=== PATIENT | female | born 1990 | race American Indian/Alaskan Native ===

== ENCOUNTER 2020-05-03 09:57 | Emergency (ER) | payer MEDICAID ==
[2020-05-03] MEDS ORDERED: ZIPRASIDONE MESYLATE 20 MG VIAL IM ONE ×3 (10:10→18:11)
--- NOTE | 2020-05-03 10:16 | Emergency Department Report ---
ED Psych HPI - General Stated Complaint: PSYCH Time Seen by Provider: 05/03/20 10:10 Source: EMS - History of Present Illness Initial Comments: Patient is 29 years old female with no significant past medical history. Patient brought to the emergency room via EMS from home after patient called and stating that patient has been very agitated and disrupting. He stated she started feeling of all the pains in the house. EMS stated that stated that patient had a baby in November 2019 and for the last few days kept neglecting the baby not feeding the baby for cleaning and he has to take the baby to his parents house. Upon arrival to the emergency room patient is very agitated and took of all her clothes and became completely naked and started throwing her clothes to ER staff. Patient started dancing and laughing inappropriately. Patient is chemically restrained with Geodon 20 mg IM immediately. EMS reported that patient has been stated that she had one episode like this 1 year ago before their marriage. MD Complaint: altered mental status Associated Psychiatric Symptoms: racing thoughts, delusions History of same: Yes Quality: constant Treatments Prior to Arrival: placed on mental he - Related Data Allergies Allergy/AdvReac Type Severity Reaction Status Date / Time No Known Allergies Allergy Unverified 05/03/20 18:08 ED Review of Systems ROS: Stated complaint: PSYCH Other details as noted in HPI Comment: Unobtainable due to pts medical conditions ED Physical Exam - General General appearance: other (agitated.) - Head Head exam: Present: atraumatic, normocephalic, normal inspection - ENT ENT exam: Present: normal exam - Neck Neck exam: Present: normal inspection. Absent: tenderness - Respiratory Respiratory exam: Present: normal lung sounds bilaterally - Cardiovascular Cardiovascular Exam: Present: regular rate, normal rhythm, normal heart sounds - GI/Abdominal GI/Abdominal exam: Present: soft, normal bowel sounds. Absent: distended, tenderness, guarding, rebound, rigid, organomegaly, mass, bruit, pulsatile mass, hernia - Extremities Exam Extremities exam: Present: normal inspection, full ROM, normal capillary refill. Absent: pedal edema, calf tenderness - Back Exam Back exam: Absent: CVA tenderness (R), CVA tenderness (L) - Neurological Exam Neurological exam: Present: alert, altered, CN II-XII intact. Absent: motor sensory deficit - Psychiatric Psychiatric exam: Present: agitated, manic - Skin Skin exam: Present: warm, intact, normal color ED Course Vital Signs 05/03/20 05/03/20 05/03/20 10:57 11:52 15:46 Temperature 98.4 F Pulse Rate 87 85 Respiratory 18 18 18 Rate Blood Pressure 118/73 Blood Pressure 135/102 [Left] O2 Sat by Pulse 99 100 99 Oximetry 05/03/20 05/04/20 20:39 02:51 Temperature 97.7 F 98.0 F Pulse Rate 86 77 Respiratory 18 18 Rate Blood Pressure Blood Pressure 157/112 152/90 [Left] O2 Sat by Pulse 100 99 Oximetry ED Medical Decision Making - Lab Data Result diagrams: 05/03/20 10:41 05/03/20 10:41 Critical care attestation.: If time is entered above; I have spent that time in minutes in the direct care of this critically ill patient, excluding procedure time. ED Disposition Clinical Impression: Acute psychosis Disposition: DC/TX-70 ANOTHER TYPE HLTHCARE Is pt being admited?: No Condition: Stable Referrals: PRIMARY CARE [Primary Care Provider] - 3-5 Days
[2020-05-03 11:22] LABS: Basophils # (Auto) 0.1 K/mm3 (0.0-0.1); Basophils % (Auto) 1.1 % (0.0-1.8); Eosinophils % (Auto) 0.3 % (0.0-4.3); Hematocrit 48.1 % (30.3-42.9); Hemoglobin 16.4 gm/dl (10.1-14.3); Lymphocytes # (Auto) 2.4 K/mm3 (1.2-5.4); Lymphocytes % (Auto) 21.6 % (13.4-35.0); Mean Corpuscular HGB Conc 34 % (30-34); Mean Corpuscular Volume 92 fl (79-97); Monocytes # (Auto) 0.9 K/mm3 (0.0-0.8); Monocytes % (Auto) 8.6 % (0.0-7.3); Red Blood Count 5.23 M/mm3 (3.65-5.03); Red Cell Distribution Width 12.3 % (13.2-15.2)
[2020-05-03 11:35] LABS: Platelet Count 414 K/mm3 (140-440)
[2020-05-03 11:39] LABS: BUN/Creatinine Ratio 9; Blood Urea Nitrogen 8 mg/dL (7-17); Calcium 10.2 mg/dL (8.4-10.2); Hemolysis Index 18
[2020-05-03] MEDS ORDERED: LORazepam 2 MG/ML VIAL IM ONE (18:12)
[2020-05-04 01:32] LABS: Amphetamine Screen,Urine PRESUMPTIVE NEGATIVE; Benzodiazepines Screen,Urine PRESUMPTIVE NEGATIVE; Cannabinoid Screen,Urine PRESUMPTIVE POSITIVE; Cocaine Screen,Urine PRESUMPTIVE NEGATIVE; Methadone Screen,Urine PRESUMPTIVE NEGATIVE; Opiate Screen,Urine PRESUMPTIVE NEGATIVE
[2020-05-04 01:46] LABS: Bilirubin,Urine NEG (Negative); Blood,Urine NEG (Negative); Color,Urine Amber (Yellow); Mucus,Urine 3+ /HPF
[2020-05-04 02:53] VITALS: BP 152/90
== END 2020-05-04 04:22 | disposition other institution (70) ==
LOC: ED 09:57
DX: F23 Brief psychotic disorder (principal)
CPT/HCPCS: 36415; 80048; 80307; 81001; 84703; 85025; 87086; 96372; 99285; J2060; J3486; 80320; G0480

== ENCOUNTER 2020-11-01 20:15 | Emergency (ER) | payer MEDICAID ==
--- NOTE | 2020-11-01 20:31 | Emergency Department Report ---
Blank Doc - Documentation Documentation: 30-year-old female that presents with abdominal pain with n/v/d. Stated had c linched hands and tremors now. This initial assessment/diagnostic orders/clinical plan/treatment(s) is/are subject to change based on patient's health status, clinical progression and re- assessment by fellow clinical providers in the ED. Further treatment and workup at subsequent clinical providers discretion. Patient/guardians urged not to elope from the ED as their condition may be serious if not clinically assessed and managed. Initial orders include: 1- Patient sent to [facility] for further evaluation and treatment 2-labs 3- UA
[2020-11-01 20:43] LABS: Basophils # (Auto) 0.1 K/mm3 (0.0-0.1); Basophils % (Auto) 0.4 % (0.0-1.8); Eosinophils % (Auto) 0.3 % (0.0-4.3); Hematocrit 43.4 % (30.3-42.9); Hemoglobin 14.8 gm/dl (10.1-14.3); Lymphocytes # (Auto) 1.2 K/mm3 (1.2-5.4); Lymphocytes % (Auto) 9.8 % (13.4-35.0); Mean Corpuscular HGB Conc 34 % (30-34); Mean Corpuscular Volume 92 fl (79-97); Monocytes # (Auto) 0.4 K/mm3 (0.0-0.8); Monocytes % (Auto) 3.1 % (0.0-7.3); Platelet Count 271 K/mm3 (140-440); Red Blood Count 4.71 M/mm3 (3.65-5.03); Red Cell Distribution Width 12.3 % (13.2-15.2)
[2020-11-01 21:04] LABS: Alanine Aminotransferase 20 units/L (7-56); Albumin 5.2 g/dL (3.9-5); Blood Urea Nitrogen 9 mg/dL (7-17); Calcium 9.4 mg/dL (8.4-10.2); Hemolysis Index 19
[2020-11-01 21:06] LABS: BUN/Creatinine Ratio 15
[2020-11-01] MEDS ORDERED: MORPHINE 4 MG/1 ML INJ IV ONE (21:39)
[2020-11-01] MEDS ORDERED: ONDANSETRON 4 MG/2 ML INJ IV ONE (21:39)
[2020-11-01] MEDS ORDERED: SODIUM CHLORIDE 0.9% 1000 ML 1,000 ML IV ONE (21:39)
[2020-11-01] MEDS ORDERED: FAMOTIDINE 20 MG/2 ML INJ IV ONE (21:40)
[2020-11-01] MEDS ORDERED: POTASSIUM CHLORIDE ER 20 MEQ TAB PO ONE (21:42)
--- NOTE | 2020-11-01 21:48 | Emergency Department Report ---
HPI - General Chief Complaint: Nausea/Vomiting/Diarrhea Time Seen by Provider: 11/01/20 20:31 - HPI HPI: Room 29 The patient is a 30-year-old female present with a chief complaint of abdominal pain and cramping. Patient states she is midepigastric abdominal pain for the past 2 weeks. Patient states her pain is associated with nausea vomiting and diarrhea. The patient states today she began cramping in her arms, mouth and stomach prompting family to call EMS. The patient states she feels little better now her abdominal pain is only a 3/10. Patient denies abnormal vaginal discharge, dysuria or hematuria. Patient denies any known sick contacts including COVID-19 patients. Patient states she is uncertain if she has had a fever at home. The patient states she had over 5 episodes of diarrhea today ED Past Medical Hx - Past Medical History Previous Medical History?: No - Surgical History Past Surgical History?: Yes Additional Surgical History: x2 - Family History Family history: no significant - Social History Smoking Status: Never Smoker Substance Use Type: Alcohol (Occasional), Marijuana - Medications Home Medications: Home Medications Medication Instructions Recorded Confirmed Last Taken Type Diphenoxylate/Atropine [Lomotil] 2 tab PO QID PRN #20 tablet 11/02/20 Unknown Rx Famotidine [Pepcid] 20 mg PO BID #10 tablet 11/02/20 Unknown Rx Ondansetron [Zofran ODT TAB] 8 mg PO Q8HR #20 tab.rapdis 11/02/20 Unknown Rx traMADoL [Ultram] 50 mg PO Q6HR PRN #10 tablet 11/02/20 Unknown Rx ED Review of Systems ROS: Stated complaint: HAND CRAMPING Other details as noted in HPI Constitutional: fever (?) Eyes: denies: eye pain ENT: denies: throat pain Respiratory: no symptoms reported Cardiovascular: denies: chest pain Endocrine: no symptoms reported Gastrointestinal: abdominal pain, nausea, vomiting, diarrhea Genitourinary: denies: dysuria, hematuria Musculoskeletal: back pain Neurological: denies: headache Physical Exam - Physical Exam Vital Signs: Vital Signs 11/01/20 20:25 Temperature 98.5 F Pulse Rate 73 Respiratory 17 Rate Blood Pressure 120/71 O2 Sat by Pulse 99 Oximetry Physical Exam: GENERAL: The patient is well-developed well-nourished female lying in chair not appearing to be in acute distress. Patient using cell phone HEENT: Normocephalic. Atraumatic. Extraocular motions are intact. Patient has moist mucous membranes. NECK: Supple. Trachea midline CHEST/LUNGS: Clear to auscultation. There is no respiratory distress noted. HEART/CARDIOVASCULAR: Regular. There is no tachycardia. There is no gallop rub or murmur. ABDOMEN: Abdomen is soft, nontender. Patient has normal bowel sounds. There is no abdominal distention. SKIN: There is no rash. There is no edema. There is no diaphoresis. NEURO: The patient is awake, alert, and oriented. The patient is cooperative. The patient has no focal neurologic deficits. The patient has normal speech MUSCULOSKELETAL: There is no CVA tenderness. There is no evidence of acute injury. ED Course Vital Signs 11/01/20 20:25 Temperature 98.5 F Pulse Rate 73 Respiratory 17 Rate Blood Pressure 120/71 O2 Sat by Pulse 99 Oximetry ED Medical Decision Making - Lab Data Result diagrams: 11/01/20 20:31 11/01/20 20:31 Laboratory Tests 11/01/20 11/01/20 11/01/20 20:31 20:31 20:31 WBC 12.4 H RBC 4.71 Hgb 14.8 H Hct 43.4 H MCV 92 MCH 31 MCHC 34 RDW 12.3 L Plt Count 271 Lymph % (Auto) 9.8 L [place] % (Auto) 3.1 Eos % (Auto) 0.3 Baso % (Auto) 0.4 Lymph # (Auto) 1.2 [place] # (Auto) 0.4 Eos # (Auto) 0.0 Baso # (Auto) 0.1 Seg Neutrophils % 86.4 H Seg Neutrophils # 10.7 H Sodium 140 Potassium 3.0 L Chloride 102.1 Carbon Dioxide 21 L Anion Gap 20 BUN 9 Creatinine 0.6 Estimated GFR > 60 BUN/Creatinine Ratio 15 Glucose 93 Calcium 9.4 Total Bilirubin 0.50 AST 22 ALT 20 Alkaline Phosphatase 79 Total Protein 8.5 H Albumin 5.2 H Albumin/Globulin Ratio 1.6 Lipase 15 HCG, Qual Negative Urine Color Urine Turbidity Urine pH Ur Specific [place] Urine Protein Urine Glucose (UA) Urine Ketones Urine Blood Urine Nitrite Ur Reducing Substances Urine Bilirubin Urine Ictotest Urine Urobilinogen Ur Leukocyte Esterase Urine WBC (Auto) Urine RBC (Auto) U Epithel Cells (Auto) Urine Mucus 11/01/20 21:32 WBC RBC Hgb Hct MCV MCH MCHC RDW Plt Count Lymph % (Auto) [place] % (Auto) Eos % (Auto) Baso % (Auto) Lymph # (Auto) [place] # (Auto) Eos # (Auto) Baso # (Auto) Seg Neutrophils % Seg Neutrophils # Sodium Potassium Chloride Carbon Dioxide Anion Gap BUN Creatinine Estimated GFR BUN/Creatinine Ratio Glucose Calcium Total Bilirubin AST ALT Alkaline Phosphatase Total Protein Albumin Albumin/Globulin Ratio Lipase HCG, Qual Urine Color Yellow Urine Turbidity Slightly-cloudy Urine pH 6.0 Ur Specific [place] 1.024 Urine Protein 100 mg/dl Urine Glucose (UA) Neg Urine Ketones 80 Urine Blood Neg Urine Nitrite Neg Ur Reducing Substances Not Reportable Urine Bilirubin Neg Urine Ictotest Not Reportable Urine Urobilinogen < 2.0 Ur Leukocyte Esterase Neg Urine WBC (Auto) 1.0 Urine RBC (Auto) < 1.0 U Epithel Cells (Auto) 17.0 H Urine Mucus 1+ - Differential Diagnosis Gastroenteritis, partial small bowel obstruction, UTI, pyelonephritis Critical care attestation.: If time is entered above; I have spent that time in minutes in the direct care of this critically ill patient, excluding procedure time. ED Disposition Clinical Impression: Acute abdominal pain, Nausea vomiting and diarrhea, Hypokalemia Disposition: - TO HOME OR SELFCARE Is pt being admited?: No Does the pt Need Aspirin: No Condition: Stable Instructions: Abdominal Pain, Adult, [id number], Nausea and Vomiting, Adult, Diarrhea, Adult Additional Instructions: Return to the emergency department should you develop worsening symptoms, inability to tolerate food or liquids, high fever or any other concerns Prescriptions: Diphenoxylate/Atropine [Lomotil] 2 tab PO QID PRN #20 tablet PRN Reason: Diarrhea Famotidine [Pepcid] 20 mg PO BID #10 tablet traMADoL [Ultram] 50 mg PO Q6HR PRN #10 tablet PRN Reason: Pain Ondansetron [Zofran ODT TAB] 8 mg PO Q8HR #20 tab.rapdis Referrals: ROSE BUI MD [Primary Care Provider] - 3-5 Days [facility] [Provider Group] - 3-5 Days KYLE SCHAEFER MD [Staff Physician] - 3-5 Days (Dr. Schaefer is a gastroent erologist. Please follow-up with him for further evaluation if your symptoms persist) Time of Disposition: 00:36
[2020-11-01 21:53] LABS: Mucus,Urine 1+ /HPF; RBC,Urine < 1.0 /HPF (0.0-6.0)
[2020-11-01 21:54] LABS: Bilirubin,Urine NEG (Negative); Blood,Urine NEG (Negative); Color,Urine Yellow (Yellow); Urobilinogen,Urine < 2.0 mg/dL (<2.0)
[2020-11-01] MEDS: POTASSIUM CHLORIDE 10 MEQ 10 MEQ/100 ML BAG IV SCH (22:42)
--- NOTE | 2020-11-02 00:04 | Cat Scan Report ---
CT ABDOMEN AND PELVIS WITH CONTRAST INDICATION / CLINICAL INFORMATION: Pt complains of Epigastric Abd pain x 2 weeks, N/V/D. TECHNIQUE: Axial CT images were obtained through the abdomen and pelvis after 100 mL Omnipaque [address] scans at this location are performed using CT dose reduction for ALARA by means of automated exposure control. COMPARISON: None available. FINDINGS: Patient motion artifact from coughing and gagging during the examination. LOWER CHEST: No significant abnormality. LIVER: No significant abnormality. GALLBLADDER: No significant abnormality. BILE DUCTS: No significant abnormality. PANCREAS: No significant abnormality. SPLEEN: No significant abnormality. ADRENALS: No significant abnormality. RIGHT KIDNEY / URETER: No significant abnormality. LEFT KIDNEY / URETER: No significant abnormality. STOMACH / SMALL BOWEL: No significant abnormality. COLON: No significant abnormality. APPENDIX: No significant abnormality. PERITONEUM: No free fluid. No free air. No fluid collection. LYMPH NODES: No significant adenopathy. AORTA / ARTERIES: No significant abnormality. IVC / VEINS: No significant abnormality. URINARY BLADDER: No significant abnormality. REPRODUCTIVE ORGANS: No significant abnormality. ADDITIONAL FINDINGS: None. SKELETAL SYSTEM: No significant abnormality. IMPRESSION: 1. No acute process in the abdomen or pelvis. Signer Name: Sharrno Nelson MD Signed: 11/01/2020 11:59 PM Workstation Name: [id number]
[2020-11-02] MEDS: POTASSIUM CHLORIDE 10 MEQ 10 MEQ/100 ML BAG IV SCH (00:05)
[2020-11-02 01:52] VITALS: BP 122/60
== END 2020-11-02 01:20 | disposition home or self-care (01) ==
LOC: ED 20:15
DX: E87.6 Hypokalemia (principal); R10.13 Epigastric pain; R11.2 Nausea with vomiting, unspecified; R19.7 Diarrhea, unspecified; F12.10 Cannabis abuse, uncomplicated; Z98.890 Other specified postprocedural states; Z79.899 Other long term (current) drug therapy; Z88.2 Allergy status to sulfonamides
CPT/HCPCS: 36415; 74177; 80053; 81001; 83690; 84703; 85025; 96365; 96375; 99284; J2270; J2405; J3480; J7030; Q9967

== ENCOUNTER 2021-02-28 07:47 | Emergency (ER) | payer MEDICAID ==
[2021-02-28] MEDS ORDERED: LORazepam 2 MG/ML VIAL IM PRN (08:04)
[2021-02-28] MEDS ORDERED: diphenhydrAMINE 50 MG/ML VIAL IM STA (08:04)
[2021-02-28] MEDS ORDERED: HALOPERIDOL LACTATE 5 MG/1 ML INJ IM PRN (08:04)
[2021-02-28] MEDS ORDERED: SODIUM CHLORIDE 0.9% 1000 ML 1,000 ML IV ONE (08:06)
--- NOTE | 2021-02-28 08:17 | Emergency Department Report ---
ED General Adult HPI - General Chief complaint: Psych Stated complaint: PSYCH PUI?: No Time Seen by Provider: 02/28/21 08:03 Source: family, EMS (Verbal report received from emergency medical services. EMS documentation not available at time of chart dictation ), RN notes reviewed, old records reviewed Mode of arrival: Stretcher Limitations: Other (Acute psychosis) - History of Present Illness Initial comments: The patient was evaluated in the emergency department for symptoms described in the history of present illness. He/she was evaluated in the context of the global COVID-19 pandemic, which necessitated consideration that the patient might be at risk for infection with the virus that causes COVID-19. Institutional protocols and algorithms that pertain to the evaluation of patients at risk for COVID-19 are in a state of rapid change based on information released by regulatory bodies including the CDC and federal and state organizations. These policies and algorithms were followed during the patient's care in the emergency department. Please note that these policies, procedures and recommendations changed on a rapid basis. The patient is a 30-year-old female who is not known to myself previously, who w as brought to the hospital by emergency medical services for acute psychosis. EMS reports that they were called because of bizarre behavior, and the patient taking off her clothes, and not getting dressed. Apparently, the patient may have been arrested or evaluated by police department recently for indecent exposure and nudity. EMS reports that in the field, the patient is awake, uncooperative, and refused vital signs. They also report that the patient is sticking fingers in her mouth, to make herself throw up. Upon arrival to this emergency room, the patient is naked, rolling around on the floor, sticking her fingers in her mouth, making herself throw up. The patient states "maybe I am perfectly insane." The patient informed me that she is not having homicidal or suicidal thoughts. The patient will not answer my additional questions. The patient did tell me that she is not . The patient is not accompanied by friends or family at this time for additional information. The patient herself cannot describe the qualitative nature of her symptoms, exacerbating factors, relieving factors or aggravating factors. She is repeatedly retching, and sticking her fingers in her mouth, making herself throw up. She then places her hand in the emesis, and rubs it on the floor. We attempted to reason with the patient, which she was not amenable to. We then attempted show of force, and de-escalation techniques. These were not successful. Patient was therefore placed on a 1013 hold, and medicated with haloperidol, Ativan, and Benadryl. -: unknown - Related Data Previous Rx's Medication Instructions Recorded Last Taken Type Diphenoxylate/Atropine [Lomotil] 2 tab PO QID PRN #20 tablet 11/02/20 Unknown Rx Famotidine [Pepcid] 20 mg PO BID #10 tablet 11/02/20 Unknown Rx Ondansetron [Zofran ODT TAB] 8 mg PO Q8HR #20 tab.rapdis 11/02/20 Unknown Rx traMADoL [Ultram] 50 mg PO Q6HR PRN #10 tablet 11/02/20 Unknown Rx Divalproex [Adrian ALMEIDA] 125 mg PO BID #60 tablet 03/01/21 Unknown Rx Valdemar Root [Valdemar] 250 mg PO QID PRN #30 capsule 03/01/21 Unknown Rx OLANzapine [ZyPREXA] 2.5 mg PO QDAY #30 tablet 03/01/21 Unknown Rx traZODone [Desyrel] 50 mg PO QHS #30 tab 03/01/21 Unknown Rx Allergies Allergy/AdvReac Type Severity Reaction Status Date / Time Sulfa (Sulfonamide Allergy Swelling Verified 03/01/21 08:25 Antibiotics) ED Review of Systems ROS: Stated complaint: PSYCH Other details as noted in HPI Comment: Unobtainable due to pts medical conditions Gastrointestinal: nausea, vomiting ED Past Medical Hx - Surgical History Additional Surgical History: x2 - Social History Smoking Status: Never Smoker Substance Use Type: Alcohol (Occasional), Marijuana - Medications Home Medications: Home Medications Medication Instructions Recorded Confirmed Last Taken Type Diphenoxylate/Atropine [Lomotil] 2 tab PO QID PRN #20 tablet 11/02/20 Unknown Rx Famotidine [Pepcid] 20 mg PO BID #10 tablet 11/02/20 Unknown Rx Ondansetron [Zofran ODT TAB] 8 mg PO Q8HR #20 tab.rapdis 11/02/20 Unknown Rx traMADoL [Ultram] 50 mg PO Q6HR PRN #10 tablet 11/02/[address] [DepaKOTE DR] 125 mg PO BID #60 tablet 03/01/21 Unknown Rx Valdemar Root [Valdemar] 250 mg PO QID PRN #30 capsule 03/01/21 Unknown Rx OLANzapine [ZyPREXA] 2.5 mg PO QDAY #30 tablet 03/01/21 Unknown Rx traZODone [Desyrel] 50 mg PO QHS #30 tab 03/01/21 Unknown Rx ED Physical Exam - General Limitations: Other (Acute psychosis) General appearance: anxious - Head Head exam: Present: atraumatic, normocephalic - Eye Eye exam: Present: normal appearance, EOMI - ENT ENT exam: Present: normal exam, normal orophraynx, mucous membranes moist, normal external ear exam - Neck Neck exam: Present: normal inspection, full ROM. Absent: tenderness, meningismus - Respiratory Respiratory exam: Present: normal lung sounds bilaterally. Absent: respiratory distress, wheezes, rales, rhonchi, stridor, decreased breath sounds - Cardiovascular Cardiovascular Exam: Present: regular rate, normal rhythm, normal heart sounds. Absent: bradycardia, tachycardia, irregular rhythm, systolic murmur, diastolic murmur, rubs, gallop - GI/Abdominal GI/Abdominal exam: Present: soft. Absent: distended, tenderness, guarding, rebound, rigid, pulsatile mass - Rectal Rectal exam: Present: normal inspection, other (Chaperoned by nurse Pilar Thrasher) - External exam: Present: normal external exam (Chaperoned by nurse Pilar Thrasher) - Extremities Exam Extremities exam: Present: normal inspection, full ROM, other (2+ pulses noted in the bilateral upper and lower extremities. There is no palpable cord. negative Homans sign. Muscular compartments are soft. The pelvis is stable.). Absent: pedal edema, calf tenderness - Back Exam Back exam: Present: normal inspection, full ROM. Absent: tenderness, CVA tenderness (R), CVA tenderness (L), paraspinal tenderness, vertebral tenderness - Neurological Exam Neurological exam: Present: normal gait, other (There is no facial droop. The tongue is midline. Extraocular movements are intact bilaterally. There is 5 out of 5 strength in 4 extremities.) - Psychiatric Psychiatric exam: Present: agitated, manic - Skin Skin exam: Present: warm, dry, intact, normal color. Absent: rash ED Course Vital Signs 02/28/21 02/28/21 02/28/21 09:14 11:02 18:40 Temperature 98.4 F Pulse Rate 76 86 68 Respiratory 15 15 14 Rate Blood Pressure 125/80 125/88 139/90 [Right] O2 Sat by Pulse 99 96 100 Oximetry 02/28/21 03/01/21 03/01/21 20:00 08:23 08:24 Temperature 98.6 F Pulse Rate 85 Respiratory 14 20 Rate Blood Pressure 121/83 [Right] O2 Sat by Pulse 100 100 100 Oximetry - Reevaluation(s) Reevaluation #1: 02/28/21 08:20 Differential diagnosis, including but not limited to: Psychosis, medical clearance for psychiatric placement Assessment and plan: 30-year-old female, who is likely experiencing a psychotic break, making herself retch by throwing up, after putting her fingers in her mouth. She is placed on 1013 hold status. She is medicated with haloperidol, Ativan and Benadryl. Check appropriate laboratory studies, CT scan of the brain, CT scan of the abdomen pelvis, urinalysis. Reassess after initial data points. 02/28/21 09:33 The patient is now sleeping comfortably in her stretcher. No active vomiting. Laboratory studies and CT scans pending. Leukocytosis is likely a stress reaction. 02/28/21 10:44 No active vomiting. Laboratory studies reviewed and appreciated. Decreased CO2/metabolic acidosis likely secondary to history of nausea and vomiting, likely secondary to self-induced vomiting. This should resolve with IV fluids and proper resuscitation which have been ordered. Elevated CK does not meet criteria for definition of rhabdomyolysis, and will decrease on his home with rest, and oral/IV hydration. CT scans negative for acute findings. Assuming metabolic acidosis corrects, we would consider this patient medically suitable for psychiatric consultation. 02/28/21 11:49 No active vomiting. Vital signs within normal limits. Please note that patient was a very difficult intravenous cannulation stick, and nursing team had to call the IV nurse to come by and insert an IV with assistance. This has resulted in a delay of IV fluid administration. Thus, repeat basic metabolic panel has been pushed back to 2:00 PM this afternoon. IV fluids are still infusing at this time. Repeat basic metabolic panel pending. 02/28/21 14:45 Repeat basic metabolic panel improved, however, patient still has an anion gap, and decreased bicarbonate, likely secondary to prehospital nausea, vomiting and dehydration. Additional IV fluids ordered, repeat basic metabolic panel ordered, care be transferred to the oncoming ER physician, Dr. Haim [place], to follow-up on repeat basic metabolic panel, and if normalized, we would consider this patient to be medically suitable for psychiatric consultation, placement and evaluation. Assuming normalization of basic metabolic panel, patient would not have an immediate medical contraindication to psychiatric admission, evaluation, consultation and placement. 03/01/21 13:55 The patient was medically cleared yesterday. She has had an uneventful stable here in the emergency room. She is now awake, alert, oriented, lucid, with no further nausea or vomiting. 1013 status was discontinued by the psychiatry team. Vital signs, laboratory studies are reviewed and appreciated. Patient clinically sober at this time. Discharge with outpatient follow-up ED Medical Decision Making - Lab Data Result diagrams: 03/01/21 08:40 03/01/21 08:40 Vital Signs 02/28/21 09:14 Temperature 98.4 F Pulse Rate 76 Respiratory 15 Rate Blood Pressure 125/80 [Right] O2 Sat by Pulse 99 Oximetry Lab Results 02/28/21 02/28/21 02/28/21 Range/Units 08:30 08:30 08:46 WBC 14.3 H (4.5-11.0) K/mm3 RBC 4.84 (3.65-5.03) M/mm3 Hgb 14.9 H (10.1-14.3) gm/dl Hct 44.0 H (30.3-42.9) % MCV 91 (79-97) fl MCH 31 (28-32) pg MCHC 34 (30-34) % RDW 12.2 L (13.2-15.2) % Plt Count 333 (140-440) K/mm3 Urine Color Yellow (Yellow) Urine Turbidity Slightly-cloudy (Clear) Urine pH 5.0 (5.0-7.0) Ur Specific [place] 1.024 (1.003-1.030) Urine Protein 100 mg/dl (Negative) mg/dL Urine Glucose (UA) Neg (Negative) mg/dL Urine Ketones 80 (Negative) mg/dL Urine Blood Mod (Negative) Urine Nitrite Neg (Negative) Urine Bilirubin Neg (Negative) Urine Urobilinogen < 2.0 (<2.0) mg/dL Ur Leukocyte Esterase Neg (Negative) Urine WBC (Auto) 3.0 (0.0-6.0) /HPF Urine RBC (Auto) 2.0 (0.0-6.0) /HPF U Epithel Cells (Auto) 8.0 (0-13.0) /HPF Urine Bacteria (Auto) 1+ (Negative) /HPF Urine Mucus Few /HPF Urine Opiates Screen Negative Urine Methadone Screen Negative Ur Barbiturates Screen Negative Ur Phencyclidine Scrn Negative Ur Amphetamines Screen Negative U Benzodiazepines Scrn Negative Urine Cocaine Screen Negative Vital Signs 02/28/21 09:14 Temperature 98.4 F Pulse Rate 76 Respiratory 15 Rate Blood Pressure 125/80 [Right] O2 Sat by Pulse 99 Oximetry Lab Results 02/28/21 02/28/21 02/28/21 Range/Units 08:30 08:30 08:46 WBC (4.5-11.0) K/mm3 RBC (3.65-5.03) M/mm3 Hgb (10.1-14.3) gm/dl Hct (30.3-42.9) % MCV (79-97) fl MCH (28-32) pg MCHC (30-34) % RDW (13.2-15.2) % Plt Count (140-440) K/mm3 Sodium 135 L (137-145) mmol/L Potassium 3.6 (3.6-5.0) mmol/L Chloride 95.4 L (98-107) mmol/L Carbon Dioxide 10 L (22-30) mmol/L Anion Gap 33 mmol/L BUN 12 (7-17) mg/dL Creatinine 0.7 (0.6-1.2) mg/dL Estimated GFR > 60 ml/min BUN/Creatinine Ratio 17 % Glucose 113 H (65-100) mg/dL Calcium 9.7 (8.4-10.2) mg/dL Magnesium (1.7-2.3) mg/dL Total Bilirubin 0.90 (0.1-1.2) mg/dL AST 75 H (5-40) units/L ALT 50 (7-56) units/L Alkaline Phosphatase 86 (35-129) units/L Total Creatine Kinase (30-135) units/L Total Protein 9.2 H (6.3-8.2) g/dL Albumin 5.5 H (3.9-5) g/dL Albumin/Globulin Ratio 1.5 % TSH (0.270-4.200) mlU/mL HCG, Qual (Negative) Urine Color Yellow (Yellow) Urine Turbidity Slightly-cloudy (Clear) Urine pH 5.0 (5.0-7.0) Ur Specific [place] 1.024 (1.003-1.030) Urine Protein 100 mg/dl (Negative) mg/dL Urine Glucose (UA) Neg (Negative) mg/dL Urine Ketones 80 (Negative) mg/dL Urine Blood Mod (Negative) Urine Nitrite Neg (Negative) Urine Bilirubin Neg (Negative) Urine Urobilinogen < 2.0 (<2.0) mg/dL Ur Leukocyte Esterase Neg (Negative) Urine WBC (Auto) 3.0 (0.0-6.0) /HPF Urine RBC (Auto) 2.0 (0.0-6.0) /HPF U Epithel Cells (Auto) 8.0 (0-13.0) /HPF Urine Bacteria (Auto) 1+ (Negative) /HPF Urine Mucus Few /HPF Salicylates (2.8-20.0) mg/dL Urine Opiates Screen Negative Urine Methadone Screen Negative Ur Barbiturates Screen Negative Ur Phencyclidine Scrn Negative Ur Amphetamines Screen Negative U Benzodiazepines Scrn Negative [place] (0.0-1.2) mmol/L Urine Cocaine Screen Negative U Marijuana (THC) Screen Presumptive positive Drugs of Abuse Note Disclamer 02/28/21 02/28/21 02/28/21 Range/Units 08:46 08:46 08:46 WBC (4.5-11.0) K/mm3 RBC (3.65-5.03) M/mm3 Hgb (10.1-14.3) gm/dl Hct (30.3-42.9) % MCV (79-97) fl MCH (28-32) pg MCHC (30-34) % RDW (13.2-15.2) % Plt Count (140-440) K/mm3 Sodium (137-145) mmol/L Potassium (3.6-5.0) mmol/L Chloride (98-107) mmol/L Carbon Dioxide (22-30) mmol/L Anion Gap mmol/L BUN (7-17) mg/dL Creatinine (0.6-1.2) mg/dL Estimated GFR ml/min BUN/Creatinine Ratio % Glucose (65-100) mg/dL Calcium (8.4-10.2) mg/dL Magnesium (1.7-2.3) mg/dL Total Bilirubin (0.1-1.2) mg/dL AST (5-40) units/L ALT (7-56) units/L Alkaline Phosphatase (35-129) units/L Total Creatine Kinase (30-135) units/L Total Protein (6.3-8.2) g/dL Albumin (3.9-5) g/dL Albumin/Globulin Ratio % TSH 0.625 (0.270-4.200) mlU/mL HCG, Qual Negative (Negative) Urine Color (Yellow) Urine Turbidity (Clear) Urine pH (5.0-7.0) Ur Specific [place] (1.003-1.030) Urine Protein (Negative) mg/dL Urine Glucose (UA) (Negative) mg/dL Urine Ketones (Negative) mg/dL Urine Blood (Negative) Urine Nitrite (Negative) Urine Bilirubin (Negative) Urine Urobilinogen (<2.0) mg/dL Ur Leukocyte Esterase (Negative) Urine WBC (Auto) (0.0-6.0) /HPF Urine RBC (Auto) (0.0-6.0) /HPF U Epithel Cells (Auto) (0-13.0) /HPF Urine Bacteria (Auto) (Negative) /HPF Urine Mucus /HPF Salicylates < 0.3 L (2.8-20.0) mg/dL Urine Opiates Screen Urine Methadone Screen Ur Barbiturates Screen Ur Phencyclidine Scrn Ur Amphetamines Screen U Benzodiazepines Scrn [place] 0.1 (0.0-1.2) mmol/L Urine Cocaine Screen U Marijuana (THC) Screen Drugs of Abuse Note 02/28/21 02/28/21 Range/Units 08:46 08:46 WBC 14.3 H (4.5-11.0) K/mm3 RBC 4.84 (3.65-5.03) M/mm3 Hgb 14.9 H (10.1-14.3) gm/dl Hct 44.0 H (30.3-42.9) % MCV 91 (79-97) fl MCH 31 (28-32) pg MCHC 34 (30-34) % RDW 12.2 L (13.2-15.2) % Plt Count 333 (140-440) K/mm3 Sodium (137-145) mmol/L Potassium (3.6-5.0) mmol/L Chloride (98-107) mmol/L Carbon Dioxide (22-30) mmol/L Anion Gap mmol/L BUN (7-17) mg/dL Creatinine (0.6-1.2) mg/dL Estimated GFR ml/min BUN/Creatinine Ratio % Glucose (65-100) mg/dL Calcium (8.4-10.2) mg/dL Magnesium 2.50 H (1.7-2.3) mg/dL Total Bilirubin (0.1-1.2) mg/dL AST (5-40) units/L ALT (7-56) units/L Alkaline Phosphatase (35-129) units/L Total Creatine Kinase 864 H (30-135) units/L Total Protein (6.3-8.2) g/dL Albumin (3.9-5) g/dL Albumin/Globulin Ratio % TSH (0.270-4.200) mlU/mL HCG, Qual (Negative) Urine Color (Yellow) Urine Turbidity (Clear) Urine pH (5.0-7.0) Ur Specific [place] (1.003-1.030) Urine Protein (Negative) mg/dL Urine Glucose (UA) (Negative) mg/dL Urine Ketones (Negative) mg/dL Urine Blood (Negative) Urine Nitrite (Negative) Urine Bilirubin (Negative) Urine Urobilinogen (<2.0) mg/dL Ur Leukocyte Esterase (Negative) Urine WBC (Auto) (0.0-6.0) /HPF Urine RBC (Auto) (0.0-6.0) /HPF U Epithel Cells (Auto) (0-13.0) /HPF Urine Bacteria (Auto) (Negative) /HPF Urine Mucus /HPF Salicylates (2.8-20.0) mg/dL Urine Opiates Screen Urine Methadone Screen Ur Barbiturates Screen Ur Phencyclidine Scrn Ur Amphetamines Screen U Benzodiazepines Scrn [place] (0.0-1.2) mmol/L Urine Cocaine Screen U Marijuana (THC) Screen Drugs of Abuse Note - EKG Data -: EKG Interpreted by Me EKG shows normal: sinus rhythm Rate: normal - EKG Data 02/28/21 09:31 EKG interpreted at 09: 1 1 Sinus rhythm, 71 bpm. Normal axis, QTC prolonged. Normal P wave axis. High left ventricular voltage. QTC prolonged, 459 ms. Minimal motion artifact. Abnormal EKG. Not consistent with a STEMI. 02/28/21 09:32 - Radiology Data Radiology results: pending, report reviewed, image reviewed Noncontrast CT scan of the abdomen pelvis, noncontrast CT scan of the brain negative for acute findings. Critical care attestation.: If time is entered above; I have spent that time in minutes in the direct care of this critically ill patient, excluding procedure time. ED Disposition Clinical Impression: Medical clearance for psychiatric admission, Nausea and vomiting, Dehydration, History of marijuana use Disposition: - TO HOME OR SELFCARE Is pt being admited?: No Does the pt Need Aspirin: No Condition: Good Additional Instructions: We recommend that the patient not drive or operate motor vehicles for the next 6 months, or until cleared to do so by a primary care doctor. We recommend follow-up with a primary medical doctor within the next 5 to 7 days for repeat checkup and evaluation. We also recommend that the patient abstain from consumption of marijuana, and avoid secondhand exposure to marijuana. Please return to the emergency room right away with new pain, worsened pain, migration of pain, projectile vomiting, change in mental status, confusion, inability to tolerate liquid feeds, new, worsened or different symptoms not present on the initial emergency room evaluation. Patient may take the valdemar medication as needed for nausea and vomiting. Avoid consumption of alcohol, Motrin, ibuprofen, Naprosyn, Aleve, heavy and spicy foods. Professional and Agency Contacts To help Resolve Crises(16/04) [place] Crisis Line: Suicide Prevention Line: Crisis Text Line: Text START to 802188 Emergency: 911 Outpatient COMMUNITY Behavioral Health Resources: [facility]: [facility] [address] [place], [place] [address] [place]: [facility] [address] [place] [address] [facility]: [facility] - [address] [place] [address] Sunday thru Sunday - 8am - 5pm [place]: [facility] Service Address: [address], [place] [address] [place]: [facility] Address: [address] [place] [address] Sunday thru Sunday- 7am-2pm [facility] Address: [address] [place] [address] Sunday thru Sunday: 8:30AM-5PM OUTPATIENT MENTAL HEALTH RESOURCES [facility], [address] [place] [id number] [facility] Kristian Warren MD: [address] [facility] [address] [place] [address] [facility]: [address] [place] [address] [place] [address] [phone] [facility]: [address] [facility] [address] [place] [address] [facility]: [address] [facility] [address] [facility] [id number] [facility]: [address] [place] [address] Jordan Bass MD: [address] [facility] [id number] [facility]: [address] [facility] [place] [address] [phone] [place] CRISIS AND ACCESS LINE: * Prescriptions: traZODone [Desyrel] 50 mg PO QHS #30 tab Divalproex [Adrian ALMEIDA] 125 mg PO BID #60 tablet OLANzapine [ZyPREXA] 2.5 mg PO QDAY #30 tablet Referrals: [facility] [Provider Group] - 3-[address] [facility] [Outside] - 3-5 Days
[2021-02-28 08:58] LABS: Bacteria,Urine 1+ /HPF (Negative); Bilirubin,Urine NEG (Negative); Blood,Urine MOD (Negative); Color,Urine Yellow (Yellow); Mucus,Urine FEW /HPF; Urobilinogen,Urine < 2.0 mg/dL (<2.0)
[2021-02-28 09:00] LABS: Amphetamine Screen,Urine Negative; Benzodiazepines Screen,Urine Negative; Cocaine Screen,Urine Negative; Methadone Screen,Urine Negative; Opiate Screen,Urine Negative
[2021-02-28 09:20] LABS: Hemoglobin 14.9 gm/dl (10.1-14.3); Mean Corpuscular HGB Conc 34 % (30-34); Mean Corpuscular Volume 91 fl (79-97); Platelet Count 333 K/mm3 (140-440); Red Blood Count 4.84 M/mm3 (3.65-5.03); Red Cell Distribution Width 12.2 % (13.2-15.2)
[2021-02-28 10:08] LABS: Cannabinoid Screen,Urine PRESUMPTIVE POSITIVE
--- NOTE | 2021-02-28 10:11 | Cat Scan Report ---
CT ABDOMEN AND PELVIS WITHOUT CONTRAST INDICATION / CLINICAL INFORMATION: n/v. TECHNIQUE: Axial CT images were obtained through the abdomen and pelvis without IV contrast. Sagittal and thorpe l reformatted images. All CT scans at this location are performed using CT dose reduction for ALARA b y means of automated exposure control. COMPARISON: 11/01/2020 FINDINGS: LOWER CHEST: No significant abnormality. LIVER: No significant abnormality. GALLBLADDER: No significant abnormality. BILE DUCTS: No significant abnormality. PANCREAS: No significant abnormality. SPLEEN: No significant abnormality. ADRENALS: No significant abnormality. RIGHT KIDNEY and URETER: No significant abnormality. LEFT KIDNEY and URETER: No significant abnormality. STOMACH and SMALL BOWEL: No significant abnormality. COLON: No significant abnormality. APPENDIX: No significant abnormality. PERITONEUM: No free fluid. No free air. No fluid collection. LYMPH NODES: No significant adenopathy. AORTA and ARTERIES: No significant abnormality. IVC and VEINS: No significant abnormality. URINARY BLADDER: No significant abnormality. REPRODUCTIVE ORGANS: No significant abnormality. ADDITIONAL FINDINGS: None. SKELETAL SYSTEM: No significant abnormality. IMPRESSION: No significant abnormality. Signer Name: Gallo Dela Cruz Jr, MD Signed: 02/28/2021 10:07 AM Workstation Name: [id number]
--- NOTE | 2021-02-28 10:11 | Cat Scan Report ---
CT head/brain wo con INDICATION / CLINICAL INFORMATION: 30 years Female; Medical Clearance Psych. TECHNIQUE: Routine CT head without contrast. All CT scans at this location are performed using CT dos e reduction for ALARA by means of automated exposure control. COMPARISON: None. FINDINGS: BRAIN / INTRACRANIAL CONTENTS: No acute hemorrhage, mass effect, midline shift, hydrocephalus, or acu te, large territorial infarct. No signs of significant atrophy or chronic infarct. No significant whi te matter abnormality seen. CRANIOCERVICAL JUNCTION: No significant abnormality. ORBITS: No significant abnormality of visualized orbits. SINUSES / MASTOIDS: Visualized paranasal sinuses and mastoid air cells are essentially clear. ADDITIONAL FINDINGS: None. IMPRESSION: 1. No focal mass, hemorrhage, hydrocephalus, or acute, large territorial infarct. Signer Name: Edis Cruz MD, III Signed: 02/28/2021 10:06 AM Workstation Name: [id number]
[2021-02-28 10:27] LABS: Alanine Aminotransferase 50 units/L (7-56); Albumin 5.5 g/dL (3.9-5); Blood Urea Nitrogen 12 mg/dL (7-17); Calcium 9.7 mg/dL (8.4-10.2); Hemolysis Index 61
[2021-02-28 10:33] LABS: BUN/Creatinine Ratio 17
[2021-02-28] MEDS ORDERED: LACTATED RINGERS 3,000 ML IV ONE (10:40)
[2021-02-28] MEDS ORDERED: D5W/0.45% NACL 1,000 ML IV SCH ×2 (11:00→15:00)
--- NOTE | 2021-02-28 13:13 | Consultation ---
History of Present Illness - Reason for Consult Consult date: 02/28/21 Reason for consult: psychosis - History of Present Psychiatric Illness Per ED Note: The patient is a 30-year-old female who is not known to myself previously, who was brought to the hospital by emergency medical services for acute psychosis. EMS reports that they were called because of bizarre behavior, and the patient taking off her clothes, and not getting dressed. Apparently, th e patient may have been arrested or evaluated by police department recently for indecent exposure and nudity. EMS reports that in the field, the patient is awake, uncooperative, and refused vital signs. They also report that the patient is sticking fingers in her mouth, to make herself throw up. Upon arrival to this emergency room, the patient is naked, rolling around on the floor, sticking her fingers in her mouth, making herself throw up. The patient states "maybe I am perfectly insane." The patient informed me that she is not having homicidal or suicidal thoughts. The patient will not answer my additional questions. The patient did tell me that she is not . The patient is not accompanied by friends or family at this time for additional information. The patient herself cannot describe the qualitative nature of her symptoms, exacerbating factors, relieving factors or aggravating factors. She is repeatedly retching, and sticking her fingers in her mouth, making herself throw up. She then places her hand in the emesis, and rubs it on the floor. We attempted to reason with the patient, which she was not amenable to. We then attempted show of force, and de-escalation techniques. These were not successful. Patient was therefore placed on a 1013 hold, and medicated with haloperidol, Ativan, and Benadryl. I attempted to evaluate the patient today, she is sleeping. She easily arouses, but her thoughts are disorganized. She is confused and difficult to follow. The patient is mumbling, and doesn't answer questions after repeated attempts. PAST PSYCHIATRIC HISTORY: Unable to assess PAST MEDICAL HISTORY: None reported Family Psychiatric History: None reported or documented SOCIAL HISTORY Unable to assess REVIEW OF SYSTEMS Unable to assess MENTAL STATUS EXAMINATION Unable to assess Assessment and Plan (1) Acute Psychosis Current Visit: Yes Status: Acute Treatment Plan [address] 125mg po BID Start Vistaril 25mg po BID Start Olanzapine 2.5mg po daily Start Trazodone 50mg po qhs Sitter: Per primary Medical: Per primary Disposition: Recommend acute psychiatric inpatient treatment Will follow. Thanks for this consult Case staffed with Dr. Magana Medications and Allergies Allergies Allergy/AdvReac Type Severity Reaction Status Date / Time Sulfa (Sulfonamide Allergy Swelling Verified 11/01/20 20:28 Antibiotics) Home Medications Medication Instructions Recorded Confirmed Last Taken Type Diphenoxylate/Atropine [Lomotil] 2 tab PO QID PRN #20 tablet 11/02/20 Unknown Rx Famotidine [Pepcid] 20 mg PO BID #10 tablet 11/02/20 Unknown Rx Ondansetron [Zofran ODT TAB] 8 mg PO Q8HR #20 tab.rapdis 11/02/20 Unknown Rx traMADoL [Ultram] 50 mg PO Q6HR PRN #10 tablet 11/02/20 Unknown Rx Active Meds: Active Medications Haloperidol Lactate (Haloperidol Lactate 5 Mg/1 Ml Inj) 5 mg IM Q6HR PRN PRN Reason: Agitation Last Admin: 02/28/21 08:19 Dose: 5 mg Documented by: Lactated Ringer's (Lactated Ringers) 3,000 mls @ 999 mls/hr IV BOLUS ONE Stop: 02/28/21 13:40 Last Admin: 02/28/21 11:45 Dose: 999 mls/hr Documented by: Dextrose/Sodium Chloride (D5/0.45ns) 1,000 mls @ 0 mls/hr IV DIRECT AMAYA Last Admin: 02/28/21 11:45 Dose: 999 mls/hr Documented by: Lorazepam (Lorazepam 2 Mg/Ml Vial) 2 mg IM Q4HR PRN PRN Reason: Agitation Last Admin: 02/28/21 08:19 Dose: 2 mg Documented by: Mental Status Exam - Vital signs Last Vital Signs Temp 98.4 F 02/28/21 09:14 Pulse 86 02/28/21 11:02 Resp 15 02/28/21 11:02 BP 125/88 02/28/21 11:02 Pulse Ox 96 02/28/21 11:02 Results Result Diagrams: 02/28/21 08:46 02/28/21 08:46 Abnormal lab results 02/28/21 02/28/21 02/28/21 Range/Units 08:46 08:46 08:46 WBC (4.5-11.0) K/mm3 Hgb (10.1-14.3) gm/dl Hct (30.3-42.9) % RDW (13.2-15.2) % Sodium 135 L (137-145) mmol/L Chloride 95.4 L (98-107) mmol/L Carbon Dioxide 10 L (22-30) mmol/L Glucose 113 H (65-100) mg/dL Magnesium (1.7-2.3) mg/dL AST 75 H (5-40) units/L Total Creatine Kinase (30-135) units/L Total Protein 9.2 H (6.3-8.2) g/dL Albumin 5.5 H (3.9-5) g/dL Salicylates < 0.3 L (2.8-20.0) mg/dL Acetaminophen 5.0 L (10.0-30.0) ug/mL 02/28/21 02/28/21 Range/Units 08:46 08:46 WBC 14.3 H (4.5-11.0) K/mm3 Hgb 14.9 H (10.1-14.3) gm/dl Hct 44.0 H (30.3-42.9) % RDW 12.2 L (13.2-15.2) % Sodium (137-145) mmol/L Chloride (98-107) mmol/L Carbon Dioxide (22-30) mmol/L Glucose (65-100) mg/dL Magnesium 2.50 H (1.7-2.3) mg/dL AST (5-40) units/L Total Creatine Kinase 864 H (30-135) units/L Total Protein (6.3-8.2) g/dL Albumin (3.9-5) g/dL Salicylates (2.8-20.0) mg/dL Acetaminophen (10.0-30.0) ug/mL All other labs normal.
[2021-02-28 14:41] LABS: Blood Urea Nitrogen 6 mg/dL (7-17); Calcium 7.8 mg/dL (8.4-10.2); Hemolysis Index 11
[2021-02-28] MEDS ORDERED: LACTATED RINGERS 2,000 ML IV ONE (14:44)
[2021-02-28 14:45] LABS: BUN/Creatinine Ratio 15
--- NOTE | 2021-02-28 16:43 | XRay Report ---
CHEST 1 VIEW 02/28/2021 4:15 PM INDICATION / CLINICAL INFORMATION: acidosis. COMPARISON: None available. FINDINGS: SUPPORT DEVICES: None. HEART / MEDIASTINUM: No significant abnormality. LUNGS / PLEURA: No significant pulmonary or pleural abnormality. No pneumothorax. ADDITIONAL FINDINGS: No significant additional findings. IMPRESSION: 1. No acute findings. Signer Name: Sharron Nelson MD Signed: 02/28/2021 4:39 PM Workstation Name: [id number]
--- NOTE | 2021-02-28 18:14 | Event Note ---
Date: 02/28/[address] Olmos at 3:50 PM This is a 30-year-old female who presented with acute psychosis and was found to be forcing her finger down her throat and causing herself to vomit. This behavior apparently ceased after she was administered a cocktail of Haldol and Benadryl. Labs revealed a metabolic acidosis with initial serum bicarb level of 10 and anion gap of 33, which was attributed to likely ongoing self-induced vomiting. She was administered 3 L of lactated Ringer's and her anion gap improved to 23 and bicarb level to 13. Further fluids are running now. The patient is scheduled for repeat BMP at [address] Olmos requested that I follow-up. In addition to the BMP, I have added a lactic acid level, lipase level, venous pH, and iron and TIBC Labs have returned and reveal that her metabolic acidosis has resolved. Anion gap is closed. Of note, the patient does have mildly elevated lactate of 2.2 which is nonspecific. There is no evidence of infection or signs of sepsis. Her vital signs are stable and clinically she is well-appearing. Therefore she is medically cleared for psych treatment and placement. However we will repeat a lactic acid level later tonight as well as full set of labs in the morning. I did discuss the case with Dr. Black, the on-call hospitalist, who reviewed the details of the case and also feels that the patient does not require medical admission and should be medically cleared for psych. Laboratory Results - last 24 hr 02/28/21 02/28/21 02/28/21 08:30 08:30 08:46 WBC RBC Hgb Hct MCV MCH MCHC RDW Plt Count VBG pH Sodium 135 L Potassium 3.6 Chloride 95.4 L Carbon Dioxide 10 L Anion Gap 33 BUN 12 Creatinine 0.7 Estimated GFR > 60 BUN/Creatinine Ratio 17 Glucose 113 H Lactic Acid Calcium 9.7 Magnesium Iron TIBC Total Bilirubin 0.90 AST 75 H ALT 50 Alkaline Phosphatase 86 Total Creatine Kinase Total Protein 9.2 H Albumin 5.5 H Albumin/Globulin Ratio 1.5 Lipase TSH HCG, Qual Urine Color Yellow Urine Turbidity Slightly-cloudy Urine pH 5.0 Ur Specific [place] 1.024 Urine Protein 100 mg/dl Urine Glucose (UA) Neg Urine Ketones 80 Urine Blood Mod Urine Nitrite Neg Urine Bilirubin Neg Urine Urobilinogen < 2.0 Ur Leukocyte Esterase Neg Urine WBC (Auto) 3.0 Urine RBC (Auto) 2.0 U Epithel Cells (Auto) 8.0 Urine Bacteria (Auto) 1+ Urine Mucus Few Salicylates Urine Opiates Screen Negative Urine Methadone Screen Negative Acetaminophen Ur Barbiturates Screen Negative Ur Phencyclidine Scrn Negative Ur Amphetamines Screen Negative U Benzodiazepines Scrn Negative [place] Urine Cocaine Screen Negative U Marijuana (THC) Screen Presumptive positive Drugs of Abuse Note Disclamer Plasma/Serum Alcohol Coronavirus (PCR) 02/28/21 02/28/21 02/28/21 08:46 08:46 08:46 WBC RBC Hgb Hct MCV MCH MCHC RDW Plt Count VBG pH Sodium Potassium Chloride Carbon Dioxide Anion Gap BUN Creatinine Estimated GFR BUN/Creatinine Ratio Glucose Lactic Acid Calcium Magnesium Iron TIBC Total Bilirubin AST ALT Alkaline Phosphatase Total Creatine Kinase Total Protein Albumin Albumin/Globulin Ratio Lipase TSH 0.625 HCG, Qual Urine Color Urine Turbidity Urine pH Ur Specific [place] Urine Protein Urine Glucose (UA) Urine Ketones Urine Blood Urine Nitrite Urine Bilirubin Urine Urobilinogen Ur Leukocyte Esterase Urine WBC (Auto) Urine RBC (Auto) U Epithel Cells (Auto) Urine Bacteria (Auto) Urine Mucus Salicylates < 0.3 L Urine Opiates Screen Urine Methadone Screen Acetaminophen 5.0 L Ur Barbiturates Screen Ur Phencyclidine Scrn Ur Amphetamines Screen U Benzodiazepines Scrn [place] 0.1 Urine Cocaine Screen U Marijuana (THC) Screen Drugs of Abuse Note Plasma/Serum Alcohol Coronavirus (PCR) 02/28/21 02/28/21 02/28/21 08:46 08:46 08:46 WBC 14.3 H RBC 4.84 Hgb 14.9 H Hct 44.0 H MCV 91 MCH 31 MCHC 34 RDW 12.2 L Plt Count 333 VBG pH Sodium Potassium Chloride Carbon Dioxide Anion Gap BUN Creatinine Estimated GFR BUN/Creatinine Ratio Glucose Lactic Acid Calcium Magnesium Iron TIBC Total Bilirubin AST ALT Alkaline Phosphatase Total Creatine Kinase Total Protein Albumin Albumin/Globulin Ratio Lipase TSH HCG, Qual Negative Urine Color Urine Turbidity Urine pH Ur Specific [place] Urine Protein Urine Glucose (UA) Urine Ketones Urine Blood Urine Nitrite Urine Bilirubin Urine Urobilinogen Ur Leukocyte Esterase Urine WBC (Auto) Urine RBC (Auto) U Epithel Cells (Auto) Urine Bacteria (Auto) Urine Mucus Salicylates Urine Opiates Screen Urine Methadone Screen Acetaminophen Ur Barbiturates Screen Ur Phencyclidine Scrn Ur Amphetamines Screen U Benzodiazepines Scrn [place] Urine Cocaine Screen U Marijuana (THC) Screen Drugs of Abuse Note Plasma/Serum Alcohol < 0.01 Coronavirus (PCR) 02/28/21 02/28/21 02/28/21 08:46 10:03 14:08 WBC RBC Hgb Hct MCV MCH MCHC RDW Plt Count VBG pH Sodium 133 L Potassium 3.9 Chloride 101.3 Carbon Dioxide 13 L Anion Gap 23 BUN 6 L Creatinine 0.4 L Estimated GFR > 60 BUN/Creatinine Ratio 15 Glucose 90 Lactic Acid Calcium 7.8 L D Magnesium 2.50 H Iron TIBC Total Bilirubin AST ALT Alkaline Phosphatase Total Creatine Kinase 864 H 474 H Total Protein Albumin Albumin/Globulin Ratio Lipase TSH HCG, Qual Urine Color Urine Turbidity Urine pH Ur Specific [place] Urine Protein Urine Glucose (UA) Urine Ketones Urine Blood Urine Nitrite Urine Bilirubin Urine Urobilinogen Ur Leukocyte Esterase Urine WBC (Auto) Urine RBC (Auto) U Epithel Cells (Auto) Urine Bacteria (Auto) Urine Mucus Salicylates Urine Opiates Screen Urine Methadone Screen Acetaminophen Ur Barbiturates Screen Ur Phencyclidine Scrn Ur Amphetamines Screen U Benzodiazepines Scrn [place] Urine Cocaine Screen U Marijuana (THC) Screen Drugs of Abuse Note Plasma/Serum Alcohol Coronavirus (PCR) Negative 02/28/21 02/28/21 02/28/21 17:39 17:39 17:39 WBC RBC Hgb Hct MCV MCH MCHC RDW Plt Count VBG pH 7.382 Sodium 137 Potassium 3.6 Chloride 104.7 Carbon Dioxide 21 L D Anion Gap 15 BUN 5 L Creatinine 0.5 L Estimated GFR > 60 BUN/Creatinine Ratio 10 Glucose 164 H Lactic Acid 2.20 H* Calcium 8.2 L Magnesium Iron 38 TIBC 241 L Total Bilirubin AST ALT Alkaline Phosphatase Total Creatine Kinase Total Protein Albumin Albumin/Globulin Ratio Lipase 17 TSH HCG, Qual Urine Color Urine Turbidity Urine pH Ur Specific [place] Urine Protein Urine Glucose (UA) Urine Ketones Urine Blood Urine Nitrite Urine Bilirubin Urine Urobilinogen Ur Leukocyte Esterase Urine WBC (Auto) Urine RBC (Auto) U Epithel Cells (Auto) Urine Bacteria (Auto) Urine Mucus Salicylates Urine Opiates Screen Urine Methadone Screen Acetaminophen Ur Barbiturates Screen Ur Phencyclidine Scrn Ur Amphetamines Screen U Benzodiazepines Scrn [place] Urine Cocaine Screen U Marijuana (THC) Screen Drugs of Abuse Note Plasma/Serum Alcohol Coronavirus (PCR)
[2021-02-28 18:17] LABS: Blood Urea Nitrogen 5 mg/dL (7-17); Calcium 8.2 mg/dL (8.4-10.2); Hemolysis Index 6; Iron 38 ug/dL (37-170); Total Iron Binding Capacity 241 mcg/dL (250-450)
[2021-02-28 18:27] LABS: BUN/Creatinine Ratio 10
[2021-02-28] MEDS: hydrOXYzine PAMOATE 25 MG CAP PO SCH (18:45)
[2021-02-28] MEDS: DIVALPROEX DR 125 MG TAB PO SCH (18:45)
--- NOTE | 2021-02-28 19:11 | Event Note ---
Date: 02/28/21 Patient seen and evaluated Patient lying down comfortably and talking appropriately Labs reviewed Metabolic acidosis resolved Metabolic acidosis probably secondary to induce vomiting Repeat lactic acid at 21 hours Patient is stable for discharge/psych admission Medically cleared Diagnosis Metabolic acidosis secondary to vomiting Vomiting is resolved Metabolic acidosis resolved Lactic acid elevation-nonspecific No signs of sepsis
[2021-02-28] MEDS ORDERED: CALCIUM GLUCONATE 2,000 MG in SODIUM CHLORIDE 0.9% 100 ML IV ONE (19:30)
[2021-02-28] MEDS ORDERED: traZODone 50 MG TAB PO SCH (22:00)
[2021-03-01] MEDS ORDERED: diphenhydrAMINE 50 MG/ML VIAL IV ONE (00:10)
[2021-03-01] MEDS ORDERED: HALOPERIDOL LACTATE 5 MG/1 ML INJ IM ONE (00:10)
[2021-03-01] MEDS ORDERED: LORazepam 2 MG/ML VIAL IV ONE (00:10)
[2021-03-01] MEDS: hydrOXYzine PAMOATE 25 MG CAP PO SCH ×2 (00:51→09:44)
[2021-03-01] MEDS: DIVALPROEX DR 125 MG TAB PO SCH ×2 (00:51→09:43)
[2021-03-01 08:25] VITALS: BP 121/83
[2021-03-01 09:10] LABS: Basophils # (Auto) 0.1 K/mm3 (0.0-0.1); Eosinophils # (Auto) 0.1 K/mm3 (0.0-0.4); Eosinophils % (Auto) 1.8 % (0.0-4.3); Hematocrit 39.9 % (30.3-42.9); Hemoglobin 13.7 gm/dl (10.1-14.3); Lymphocytes # (Auto) 2.1 K/mm3 (1.2-5.4); Lymphocytes % (Auto) 25.3 % (13.4-35.0); Mean Corpuscular HGB Conc 34 % (30-34); Mean Corpuscular Volume 91 fl (79-97); Monocytes # (Auto) 0.8 K/mm3 (0.0-0.8); Monocytes % (Auto) 9.1 % (0.0-7.3); Platelet Count 300 K/mm3 (140-440); Red Blood Count 4.38 M/mm3 (3.65-5.03); Red Cell Distribution Width 12.3 % (13.2-15.2)
[2021-03-01 09:29] LABS: Blood Urea Nitrogen 3 mg/dL (7-17); Calcium 9.8 mg/dL (8.4-10.2); Hemolysis Index 6
[2021-03-01 09:33] LABS: BUN/Creatinine Ratio 5
--- NOTE | 2021-03-01 11:23 | Progress Note ---
Subjective - Reason for Consult Consult date: 03/01/21 Reason for consult: psychosis - Chief Complaint Chief complaint: Per Nurse Note: Pt refuses medications - states "I'm fine, I'm not agitated. I'm good. I just need marijuana". The patient was seen today, she is a/ x 3, calm and cooperative. She is braiding her hair. She says she's "good." The patient says yesterday she was having bad stomach pains and that's why she states she was acting the way she did. She says "the pain was so bad that it felt like something was in her." The patient says she's "good." She says she "smokes weed because it keeps her calm." She says she drinks alcohol sometimes. When asking the patient why did she refuse her meds, she says "I've never needed any meds. I never been on them." She denies SI/HI or any feelings or fear of endangerment for herself or others. She also denies hallucinations of any kind. The sitter and the nurse caring for the patient state that the patient has not exhibited any bizarre behavior, hallucinations or signs of self harm. REVIEW OF SYSTEMS Constitutional: Negative for weight loss ENT: Negative for stridor Respiratory: Negative for cough or hemoptysis All other systems reviewed and are negative MENTAL STATUS EXAMINATION General Appearance and Behavior: Age appropriate, good hygiene, wearing appropriate clothes, good eye contact, cooperative with questioning. Cooperation: engaged Psychomotor Behavior: Psychomotor normal Mood: "good" Affect and affective range: Euthymic Thought Process: goal directed Thought Content: None Speech: Normal tone and pace Suicidal Ideation: Denies SI Homicidal Ideation: denies HI Hallucinations: Denies Delusions: none elicited Impulse Control: Unimpaired Insight and Judgment: Limited Memory: Limited Attention: Undivided attention impaired Orientation: Alert, oriented Assessment and Plan (1) Acute Psychosis Current Visit: Yes Status: Acute Treatment Plan d/c [address] 125mg po BID Olanzapine 2.5mg po daily Trazodone 50mg po qhs Sitter: Per primary Medical: Per primary Disposition: Do not Recommend acute psychiatric inpatient treatment. The patient understands that if suicidal thoughts or any fear of endangerment are to arise she is to seek immediate assistance including but not limited to 911/ER or crisis hotline. The pattern generator operator to further discuss safety plan, and give the patient resources to establish outpatient psychiatry The patient is to follow up with outpatient psych in 7 to 14 days upon discharge Will sign off. Thanks for this consult Case staffed with Dr. Magana Mental Status Exam - Vital signs Last Vital Signs Temp 98.6 F 03/01/21 08:24 Pulse 85 03/01/21 08:24 Resp 20 03/01/21 08:24 BP 121/83 03/01/21 08:24 Pulse Ox 100 03/01/21 08:24
--- NOTE | 2021-03-10 10:27 | Electrocardiograph Report ---
[facility] Test Date: 2021-02-28 Test Time: 09:11:03 Pat Name: LIZZETTE ONEILL Department: Room: Gender: F Clinical Trial Associate: CLARA : 1990 Requested By: CLEMENTE PARISI Order Number: [id number] Reading MD: Ani Hudson Measurements Intervals Martell Rate: 71 P: 52 GA: 134 QRS: 59 QRSD: 81 T: 31 QT: 423 QTc: 459 Interpretive Statements Sinus rhythm Nonspecific ST changes No previous ECG available for comparison Electronically Signed On 03-10-2021 10:27:27 EDT by Ani Hudson
== END 2021-03-01 15:40 | disposition home or self-care (01) ==
LOC: ED 07:47 → EEVIPCON 07:47 → ED 03-01 15:40
DX: E86.0 Dehydration (principal); Z20.822 Contact with and (suspected) exposure to COVID-19; R11.2 Nausea with vomiting, unspecified; F12.10 Cannabis abuse, uncomplicated; R51.9 Headache, unspecified; R10.9 Unspecified abdominal pain; Z04.6 Encounter for general psychiatric examination, requested by authority; Z98.890 Other specified postprocedural states; Z79.899 Other long term (current) drug therapy; Z88.2 Allergy status to sulfonamides
CPT/HCPCS: 36415; 70450; 71045; 74176; 80048; 80053; 80178; 80307; 81001; 82140; 82550; 82805; 83550; 83690; 83735; 84443; 84703; 85025; 85027; 93005; 96361; 96365; 96366; 96372; 99285; J0610; J1200; J1630; J2060; J7120; Q0177; U0003; 80320; G0480

== ENCOUNTER 2021-03-12 13:00 | Emergency (ER) | payer MEDICAID ==
[2021-03-12] MEDS ORDERED: KETOROLAC 30 MG/1 ML INJ IM ONE (14:30)
[2021-03-12] MEDS ORDERED: TETANUS,DIPH,PERTUSS(ACELL) VACCINE 0.5 ML SYRINGE IM ONE (14:30)
[2021-03-12] MEDS ORDERED: BACITRACIN/POLYMYXIN B OINT 28.35 GM TP ONE (14:31)
[2021-03-12] MEDS ORDERED: MUPIROCIN 2% OINT 22 GM TP ONE (14:31)
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
[2021-03-12 15:58] VITALS: BP 127/86
== END 2021-03-12 16:30 | disposition home or self-care (01) ==
LOC: ED 13:00
DX: T24.292A Burn of second degree of multiple sites of left lower limb, except ankle and foot, initial encounter (principal); T24.291A Burn of second degree of multiple sites of right lower limb, except ankle and foot, initial encounter; F12.10 Cannabis abuse, uncomplicated; Z98.890 Other specified postprocedural states; Z79.899 Other long term (current) drug therapy; Z88.2 Allergy status to sulfonamides; X10.2XXA Contact with fats and cooking oils, initial encounter; Y93.89 Activity, other specified; Y92.89 Other specified places as the place of occurrence of the external cause; Y99.8 Other external cause status
CPT/HCPCS: 16025; 90471; 90715; 96372; 99282; J1885